=== PATIENT | female | born 1950 | race Caucasian/White ===

== ENCOUNTER → 2017-08-06 | Outpatient (REF) | payer OTHER ==
[2017-08-06 21:27] LABS: ATYPICAL LYMPH 4 % (0-5); BANDS 3 % (< 11); EOSINOPHILS 1 % (0-5); LYMPHOCYTES 21 % (16-52); MONOCYTES 6 % (0-8); MYELOCYTES 1 % (0-0); NEUTROPHILS 64 % (35-75)
[2017-08-06 21:28] LABS: PLATELET ESTIMATE INCREASED (NORMAL); TOXIC VACUOLATION 1+
[2017-08-06 21:29] LABS: TOXIC GRANULATION 1+
[2017-08-06 21:30] LABS: MICROCYTOSIS 1+
[2017-08-06 21:32] LABS: CHLAMYDIA DNA AMPLIFICATION NEGATIVE (NEGATIVE); GC DNA AMPLIFICATION NEGATIVE (NEGATIVE)
== END ==
LOC: M LAB REF 16:32
DX: R10.31 Right lower quadrant pain (principal); N89.8 Other specified noninflammatory disorders of vagina; I48.2 Chronic atrial fibrillation; D72.829 Elevated white blood cell count, unspecified
CPT/HCPCS: 85007

== ENCOUNTER 2017-08-08 17:42 | Emergency (ER) | payer OTHER ==
[2017-08-08 19:51] LABS: ALBUMIN 1.9 GM/DL (3.2-5.2); ALBUMIN/GLOBULIN RATIO 0.36 (1.00-1.93); ALKALINE PHOSPHATASE 286 U/L (45-117); ALT/SGPT 44 U/L (12-78); ANION GAP 11 MEQ/L (8-16); AST/SGOT 58 U/L (7-37); BILIRUBIN,TOTAL 0.6 MG/DL (0.2-1.0); BLOOD UREA NITROGEN 24 MG/DL (7-18); CALCIUM LEVEL 8.3 MG/DL (8.8-10.2); CARBON DIOXIDE LEVEL 24 MEQ/L (21-32); CHLORIDE LEVEL 104 MEQ/L (98-107); CREATININE FOR GFR 0.79 MG/DL (0.55-1.30); GLOMERULAR FILTRATION RATE > 60.0 (>45); GLUCOSE, FASTING 160 MG/DL (70-100); POTASSIUM SERUM 3.7 MEQ/L (3.5-5.1); SODIUM LEVEL 139 MEQ/L (136-145); TOTAL PROTEIN 7.2 GM/DL (6.4-8.2)
[2017-08-08 19:56] LABS: BASO # 0.1 10^3/uL (0.0-0.2); BASO % 0.3 % (0.0-1.0); EOS # 0.1 10^3/uL (0.0-0.50); EOS % 0.2 % (0.0-3.0); HEMATOCRIT 31.4 % (36.0-47.0); HEMOGLOBIN 10.1 g/dl (12.0-15.5); IMMATURE GRANULOCYTE % 3.6 % (0-3.0); LYMPH # 3.1 10^3/uL (1.5-4.5); LYMPH % 10.7 % (24.0-44.0); MEAN CORPUSCULAR HEMOGLOBIN 25.3 pg (27.0-33.0); MEAN CORPUSCULAR HGB CONC 32.2 g/dl (32.0-36.5); MEAN CORPUSCULAR VOLUME 78.7 fl (80.0-96.0); MONO # 1.7 10^3/uL (0.0-0.8); NEUTROPHILS # 22.7 10^3/uL (1.8-7.7); NEUTROPHILS % 79.2 % (36.0-66.0); PLATELET COUNT, AUTOMATED 554 10^3/uL (150-450); RED BLOOD COUNT 3.99 10^6/uL (4.00-5.40); RED CELL DISTRIBUTION WIDTH 15.5 % (11.5-14.5); WHITE BLOOD COUNT 28.7 10^3/uL (4.0-10.0)
[2017-08-08 20:27] LABS: ERYTHROCYTE SEDIMENTATION RATE 79 mm/hr (0-30)
[2017-08-08 21:29] LABS: BEDSIDE GLUCOSE 140 MG/DL (80-115)
[2017-08-09] MEDS: ONDANSETRON 4 MG ORAL DISINTEGRATING TAB (Q0162 PER 1MG) PO (01:11)
[2017-08-09] MEDS: PERCOCET 5MG/325MG TAB PO (01:11)
== END 2017-08-09 01:10 | disposition short-term general hospital (02) ==
LOC: M ED 08-09 01:10
DX: R19.00 Intra-abdominal and pelvic swelling, mass and lump, unspecified site (principal); D72.829 Elevated white blood cell count, unspecified; E11.9 Type 2 diabetes mellitus without complications; I10 Essential (primary) hypertension; E87.6 Hypokalemia; Z79.84 Long term (current) use of oral hypoglycemic drugs; Z79.899 Other long term (current) drug therapy
CPT/HCPCS: Q0162

== ENCOUNTER → 2017-08-08 | Outpatient (REF) | payer OTHER ==
[2017-08-08 21:33] LABS: ATYPICAL LYMPH 1 % (0-5); BANDS 3 % (< 11); BASOPHILS 1 % (0-4); LYMPHOCYTES 10 % (16-52); MONOCYTES 6 % (0-8); NEUTROPHILS 79 % (35-75)
[2017-08-08 21:35] LABS: ANISOCYTOSIS 1+; MICROCYTOSIS 1+; PLATELET ESTIMATE INCREASED (NORMAL)
== END ==
LOC: M LAB REF 16:13
DX: D72.829 Elevated white blood cell count, unspecified (principal)